=== PATIENT | male | born 1950 | race Caucasian/White ===

== ENCOUNTER 2016-11-11 06:53 | Day surgery (SDC) | payer OTHER ==
[~2016-11-11 06:53] MED LIST: Lactated Ringers 1,000 ML IV SCH
[2016-11-11] MEDS ORDERED: Propofol 200 MG/20 ML SDV ONE ×2 (07:18→08:43)
[2016-11-11] MEDS ORDERED: Midazolam 1 MG/ML 2 ML SDV ONE (07:19)
[2016-11-11] MEDS ORDERED: fentaNYL 100 MCG/2 ML SDV ONE (07:19)
[2016-11-11] MEDS ORDERED: Lactated Ringers 1,000 ML IV SCH (07:30)
[2016-11-11 10:08] VITALS: BP 123/58
--- NOTE | 2016-11-12 07:55 | OR ---
DATE OF PROCEDURE: 11/11/2016 PREOPERATIVE DIAGNOSIS: Diarrhea. POSTOPERATIVE DIAGNOSES: Diarrhea, etiology unknown. Diverticulosis. PROCEDURE PERFORMED: Colonoscopy to the cecum with random colonic biopsies. SURGEON: Ryley Wynn MD ANESTHESIA: IV anesthesia with monitored anesthesia care. INDICATION: This 66-year-old white male is referred for a colonoscopy. He says his last colonoscopic exam was done 10 years ago. He complains of many weeks of diarrhea. I counseled him for a colonoscopy with possible biopsy and/or polypectomy including risks and alternatives, and he gave his informed consent to proceed. DESCRIPTION OF PROCEDURE: The patient was placed in the left lateral decubitus position. IV anesthesia was administered by the Anesthesia Service. Time-out was held. A rectal exam was performed, which was unremarkable. The flexible video Olympus colonoscope was introduced through his anus, up his rectum, and out his colon all the way to the cecum. Once the cecum was reached, the scope was slowly withdrawn, examining the mucosa throughout. We did obtain random colonic biopsies throughout the entire colon due to his diarrhea. The mucosa appeared unremarkable although we did encounter left-sided diverticula. The scope was retroflexed in the rectum with the distal rectum appearing unremarkable. The scope was straightened and removed. He tolerated the procedure well. Ryley Wynn MD /[id number] MTDD
== END 2016-11-11 10:31 | disposition home or self-care (01) ==
LOC: JP.SDS 06:53
PROVIDERS: ATTEND Surgery
DX: K52.9 Noninfective gastroenteritis and colitis, unspecified (principal); K57.30 Diverticulosis of large intestine without perforation or abscess without bleeding; Z98.890 Other specified postprocedural states
CPT/HCPCS: 45380; 88305; J2250; J2704; J3010; J7120